=== PATIENT | female | born 1995 | race Hispanic/Latino ===

== ENCOUNTER 2019-05-18 17:52 | Emergency (ER) | payer OTHER ==
[2019-05-18 18:33] LABS: APPEARANCE,URINE Clear (CLEAR); BILIRUBIN,URINE Negative (NEGATIVE); COLOR,URINE Yellow (YELLOW); GLUCOSE, URINE (UA) Negative (NEGATIVE); KETONES,URINE Negative (NEGATIVE); LEUKOCYTE ESTERASE ,URINE Negative (NEGATIVE); NITRATE,URINE Negative (NEGATIVE); OCCULT BLOOD,URINE Negative (NEGATIVE); PH,URINE 5.5 (5.0-8.0); PROTEIN,URINE Negative (NEGATIVE); UROBILINOGEN,URINE 0.2 mg/dL (0.2-1.0)
== END 2019-05-18 19:50 | disposition home or self-care (01) ==
LOC: EDH 17:52
DX: O20.0 Threatened abortion (principal); Z3A.18 18 weeks gestation of pregnancy
CPT/HCPCS: 36415; 76805; 81003; 86900; 86901

== ENCOUNTER 2019-10-07 | Inpatient (IN) | payer OTHER | END 2019-10-10 14:15 | disposition home or self-care (01) | DRG 807 | PROVIDERS: ADMIT Obstetrics & Gynecology | PROC: 3E033VJ Introduction of Other Hormone into Peripheral Vein, Percutaneous Approach (ICD-10-PCS; 2019-10-08) | PROC: 10D07Z6 Extraction of Products of Conception, Vacuum, Via Natural or Artificial Opening (ICD-10-PCS; principal; 2019-10-09) | PROC: 3E0P7VZ Introduction of Hormone into Female Reproductive, Via Natural or Artificial Opening (ICD-10-PCS; 2019-10-09) | PROC: 0W8NXZZ Division of Female Perineum, External Approach (ICD-10-PCS; 2019-10-09) | PROC: 00HU33Z Insertion of Infusion Device into Spinal Canal, Percutaneous Approach (ICD-10-PCS; 2019-10-09) | PROC: 3E0R3BZ Introduction of Anesthetic Agent into Spinal Canal, Percutaneous Approach (ICD-10-PCS; 2019-10-09) | PROC: 3E0234Z Introduction of Serum, Toxoid and Vaccine into Muscle, Percutaneous Approach (ICD-10-PCS; 2019-10-09) ==

== ENCOUNTER 2019-10-13 20:51 | Emergency (ER) | payer OTHER ==
[~2019-10-13 20:51] MED LIST: PREN-154 PO
[2019-10-13 21:40] LABS: APPEARANCE,URINE Clear (CLEAR); BILIRUBIN,URINE Negative (NEGATIVE); COLOR,URINE Yellow (YELLOW); GLUCOSE, URINE (UA) Negative (NEGATIVE); KETONES,URINE Negative (NEGATIVE); LEUKOCYTE ESTERASE ,URINE Large (NEGATIVE); NITRATE,URINE Negative (NEGATIVE); OCCULT BLOOD,URINE Large (NEGATIVE); PROTEIN,URINE Negative (NEGATIVE); UROBILINOGEN,URINE 0.2 mg/dL (0.2-1.0)
[2019-10-13 21:49] LABS: BACTERIA,URINE Few /HPF (None Seen); SQUAMOUS EPITHELIAL CELL,UR Few /HPF (0-2)
[2019-10-13] MEDS ORDERED: SODIUM CHLORIDE 0.9% 1000ML 1,000 ML IV ONE (22:21)
[2019-10-13 22:43] LABS: BASOPHILS % (AUTO) 0.2 % (0.0-5.0); EOSINOPHILS % (AUTO) 2.9 % (0.0-8.0); HEMATOCRIT 33.8 % (36-48); MEAN CORPUSCULAR HEMOGLOBIN 28.1 pg (27.0-33.0); MEAN CORPUSCULAR HGB CONC 32.5 g/dL (32.0-36.0); MEAN CORPUSCULAR VOLUME 86.2 fL (79-99); MONOCYTES % (AUTO) 7.7 % (3.0-13.0); NEUTROPHILS % (AUTO) 73.5 % (40.0-77.0); PLATELET COUNT (AUTO) 341 K/uL (130-400); RED BLOOD CELL COUNT(AUTO) 3.92 MIL/uL (4.00-5.50); RED CELL DISTRIBUTION WIDTH 13.7 % (11.0-15.5); WHITE BLOOD COUNT (AUTO) 12.3 K/uL (4.8-10.8)
[2019-10-13 22:50] LABS: CREATININE 0.7 mg/dL (0.5-1.5); POTASSIUM 4.5 mmol/L (3.5-5.1)
[2019-10-13 22:54] LABS: ALBUMIN 2.7 g/dL (3.5-5.0); BILIRUBIN,TOTAL 0.2 mg/dL (0.2-1.0); TOTAL PROTEIN, SERUM 7.2 g/dL (6.0-8.3)
[2019-10-13] MEDS ORDERED: CEPHALEXIN 500 MG CAPSULE ONE (23:22)
[2019-10-13] MEDS ORDERED: ACETAMINOPHEN EXTRA STRENGTH 500 MG TABLET ONE (23:22)
== END 2019-10-13 23:29 | disposition home or self-care (01) ==
LOC: EDH 20:51
DX: O86.20 Urinary tract infection following delivery, unspecified (principal); O90.89 Other complications of the puerperium, not elsewhere classified; R42 Dizziness and giddiness; Z79.899 Other long term (current) drug therapy
CPT/HCPCS: 36415; 80053; 81001; 85025; 87088; 96360; 99283; J7030

== ENCOUNTER 2019-11-01 19:38 | Emergency (ER) | payer OTHER ==
[2019-11-01 20:11] LABS: BASOPHILS % (AUTO) 0.4 % (0.0-5.0); EOSINOPHILS % (AUTO) 4.1 % (0.0-8.0); LYMPHOCYTES % (AUTO) 33.3 % (21.0-51.0); MEAN CORPUSCULAR HEMOGLOBIN 27.2 pg (27.0-33.0); MEAN CORPUSCULAR HGB CONC 32.4 g/dL (32.0-36.0); MEAN CORPUSCULAR VOLUME 83.9 fL (79-99); NEUTROPHILS % (AUTO) 53.1 % (40.0-77.0); PLATELET COUNT (AUTO) 395 K/uL (130-400); RED BLOOD CELL COUNT(AUTO) 4.53 MIL/uL (4.00-5.50); RED CELL DISTRIBUTION WIDTH 13.2 % (11.0-15.5); WHITE BLOOD COUNT (AUTO) 7.6 K/uL (4.8-10.8)
[2019-11-01 20:20] LABS: CREATININE 0.7 mg/dL (0.5-1.5); POTASSIUM 4.4 mmol/L (3.5-5.1)
[2019-11-01 20:22] LABS: INR 0.98 (0.85-1.15); PROTHROMBIN TIME 10.6 SEC (9.6-11.6)
[2019-11-01] MEDS ORDERED: CYCLOBENZAPRINE HCL 10 MG TABLET ONE (21:06)
== END 2019-11-01 21:09 | disposition home or self-care (01) ==
LOC: EDH 19:38
DX: N93.9 Abnormal uterine and vaginal bleeding, unspecified (principal)
CPT/HCPCS: 36415; 80048; 85025; 85610; 85730

== ENCOUNTER 2020-08-11 02:23 | Inpatient (IN) | payer OTHER ==
[~2020-08-11] VITALS: Ht 162.6 cm; Wt 93.4 kg
[2020-08-11 02:57] LABS: APPEARANCE,URINE Cloudy (CLEAR); BILIRUBIN,URINE Negative (NEGATIVE); COLOR,URINE Yellow (YELLOW); GLUCOSE, URINE (UA) Negative (NEGATIVE); KETONES,URINE Negative (NEGATIVE); LEUKOCYTE ESTERASE ,URINE Moderate (NEGATIVE); NITRATE,URINE Negative (NEGATIVE); OCCULT BLOOD,URINE Negative (NEGATIVE); PH,URINE 6.5 (5.0-8.0); PROTEIN,URINE Negative (NEGATIVE)
[2020-08-11 03:04] LABS: AMPHET/METH SCREEN,URINE NEGATIVE (NEGATIVE); BARBITURATE SCREEN, URINE NEGATIVE (NEGATIVE); BENZODIAZEPINES SCREEN,URINE NEGATIVE (NEGATIVE); CANNABINOID SCREEN,URINE NEGATIVE (NEGATIVE); COCAINE SCREEN,URINE NEGATIVE (NEGATIVE); OPIATE SCREEN,URINE NEGATIVE (NEGATIVE); PHENCYCLIDINE SCREEN,URINE NEGATIVE (NEGATIVE)
[2020-08-11] MEDS ORDERED: LACTATED RINGERS 1000ML 1,000 ML IV ONE ×2 (03:09→20:42)
[2020-08-11 03:20] LABS: BACTERIA,URINE Moderate /HPF (None Seen); MUCUS,URINE Moderate LPF (None Seen); RBC,URINE None Seen /HPF (0-1); SQUAMOUS EPITHELIAL CELL,UR Moderate /HPF (0-2)
[2020-08-11] MEDS ORDERED: AMPICILLIN 2GM+NS 100ML 100 ML IV ONE (04:03)
[2020-08-11] MEDS: CEFTRIAXONE 1G VIAL IVP SCH (05:16)
[2020-08-11] MEDS: PROMETHAZINE HCL 25 MG/ML 1ML AMPULE IM PRN ×2 (05:31→19:40)
[2020-08-11] MEDS: MEPERIDINE-PF 50 MG/ML SYG IVP PRN ×3 (05:32→08:33)
[2020-08-11 08:21] LABS: BASOPHILS % (AUTO) 0.2 % (0.0-5.0); EOSINOPHILS % (AUTO) 0.8 % (0.0-8.0); HEMATOCRIT 32.4 % (36-48); LYMPHOCYTES % (AUTO) 13.7 % (21.0-51.0); MEAN CORPUSCULAR HEMOGLOBIN 24.1 pg (27.0-33.0); MEAN CORPUSCULAR HGB CONC 29.6 g/dL (32.0-36.0); MEAN CORPUSCULAR VOLUME 81.2 fL (79-99); MONOCYTES % (AUTO) 10.4 % (3.0-13.0); NEUTROPHILS % (AUTO) 73.2 % (40.0-77.0); PLATELET COUNT (AUTO) 341 K/uL (130-400); RED BLOOD CELL COUNT(AUTO) 3.99 MIL/uL (4.00-5.50); RED CELL DISTRIBUTION WIDTH 14.3 % (11.0-15.5); WHITE BLOOD COUNT (AUTO) 13.7 K/uL (4.8-10.8)
[2020-08-11] MEDS: AMPICILLIN 2GM+NS 100ML 100 ML IV SCH ×4 (09:00→21:48)
[2020-08-11 09:42] LABS: AMYLASE 67 U/L (25-115); LIPASE 74 U/L (114-286)
[2020-08-11] MEDS: MEPERIDINE-PF 75 MG/ML SYG IVP PRN ×3 (10:48→19:42)
[2020-08-11] MEDS ORDERED: ACETAMINOPHEN 325 MG TAB PO PRN (15:45)
[2020-08-11] MEDS ORDERED: ACETAMINOPHEN 325 MG TAB ONE (15:51)
[2020-08-11] MEDS ORDERED: ACETAMINOPHEN 500 MG TABLET ONE (19:28)
[2020-08-11] MEDS ORDERED: GENTAMICIN 80 MG/NS 100 ML PB 100 ML IV ONE (19:58)
[2020-08-11] MEDS: LACTATED RINGERS 1000ML 1,000 ML IV SCH (21:24)
[2020-08-12] MEDS: PROMETHAZINE HCL 25 MG/ML 1ML AMPULE IM PRN ×5 (00:07→22:10)
[2020-08-12] MEDS: MEPERIDINE-PF 75 MG/ML SYG IVP PRN ×3 (00:08→13:41)
[2020-08-12] MEDS: ACETAMINOPHEN 500 MG TABLET PO SCH ×3 (01:38→19:59)
[2020-08-12] MEDS: AMPICILLIN 2GM+NS 100ML 100 ML IV SCH (03:12)
[2020-08-12] MEDS: GENTAMICIN 80 MG/NS 100 ML PB 100 ML IV SCH ×4 (04:14→20:00)
[2020-08-12] MEDS: LACTATED RINGERS 1000ML 1,000 ML IV SCH ×4 (05:33→19:45)
[2020-08-12 06:22] LABS: BASOPHILS % (AUTO) 0.3 % (0.0-5.0); HEMATOCRIT 26.9 % (36-48); LYMPHOCYTES % (AUTO) 2.3 % (21.0-51.0); MEAN CORPUSCULAR HEMOGLOBIN 24.9 pg (27.0-33.0); MEAN CORPUSCULAR HGB CONC 30.9 g/dL (32.0-36.0); MEAN CORPUSCULAR VOLUME 80.5 fL (79-99); MONOCYTES % (AUTO) 4.4 % (3.0-13.0); NEUTROPHILS % (AUTO) 89.4 % (40.0-77.0); NUCLEATED RED BLOOD CELLS 0.1 % (0.0-0.19); PLATELET COUNT (AUTO) 294 K/uL (130-400); RED BLOOD CELL COUNT(AUTO) 3.34 MIL/uL (4.00-5.50); RED CELL DISTRIBUTION WIDTH 14.9 % (11.0-15.5); WHITE BLOOD COUNT (AUTO) 25.5 K/uL (4.8-10.8)
[2020-08-12] MEDS: MEPERIDINE-PF 50 MG/ML SYG IVP PRN ×2 (09:37→22:11)
[2020-08-12] MEDS ORDERED: GLYCERIN ADULT SUPP.RECT RC SCH (10:15)
[2020-08-12] MEDS: ZOSYN 3.375GM+NS 50ML 50 ML IV SCH ×2 (13:42→22:10)
[2020-08-12 14:12] LABS: HEPATITIS Bs ANTIGEN SCREEN P Negative (Negative)
[2020-08-13] MEDS: LACTATED RINGERS 1000ML 1,000 ML IV SCH ×2 (01:31→12:45)
[2020-08-13] MEDS: CEFTRIAXONE 1G VIAL IVP SCH (04:00)
[2020-08-13] MEDS: GENTAMICIN 80 MG/NS 100 ML PB 100 ML IV SCH ×3 (04:09→20:26)
[2020-08-13] MEDS: ACETAMINOPHEN 500 MG TABLET PO SCH (04:36)
[2020-08-13 06:04] LABS: HEMATOCRIT 27.6 % (36-48); MEAN CORPUSCULAR HEMOGLOBIN 24.3 pg (27.0-33.0); MEAN CORPUSCULAR HGB CONC 30.4 g/dL (32.0-36.0); MEAN CORPUSCULAR VOLUME 79.8 fL (79-99); RED BLOOD CELL COUNT(AUTO) 3.46 MIL/uL (4.00-5.50); RED CELL DISTRIBUTION WIDTH 15.2 % (11.0-15.5); WHITE BLOOD COUNT (AUTO) 22.1 K/uL (4.8-10.8)
[2020-08-13] MEDS: ZOSYN 3.375GM+NS 50ML 50 ML IV SCH ×2 (06:13→15:00)
[2020-08-13] MEDS ORDERED: ALBUTEROL INHALER 90MCG/INH IH PRN ×2 (09:00→18:45)
[2020-08-13] MEDS ORDERED: MEPERIDINE-PF 50 MG/ML SYG IVP PRN (09:45)
[2020-08-13] MEDS ORDERED: PROMETHAZINE HCL 25 MG/ML 1ML AMPULE IM PRN (09:45)
[2020-08-13] MEDS: HYDROXYZINE 100MG/2ML VIAL IM SCH (10:44)
[2020-08-13] MEDS ORDERED: MAGNESIUM 4GM PREMIX 100ML 100 ML IV SCH (11:45)
[2020-08-13] MEDS ORDERED: CELESTONE SOLUSPAN 6 MG/ML 5ML VIAL ONE (11:45)
[2020-08-13] MEDS ORDERED: CALCIUM GLUC 1GM VIAL IV PRN (11:45)
[2020-08-13] MEDS ORDERED: MAGNESIUM SULFATE 40GM/1000ML 1,000 ML IV PRN (11:45)
[2020-08-13] MEDS ORDERED: MAGNESIUM 4GM PREMIX 100ML 100 ML IV ONE (11:45)
[2020-08-13] MEDS ORDERED: MAGNESIUM SULFATE 40GM/1000ML 1,000 ML IV ONE (11:46)
[2020-08-13] MEDS: CELESTONE SOLUSPAN 6 MG/ML 5ML VIAL IM SCH (11:50)
[2020-08-13] MEDS ORDERED: PORACTANT ALFA 240 MG/3 ML VIAL IH ONE (13:51)
[2020-08-13] MEDS ORDERED: OXYTOCIN-LR 20 UNITS/1000 ML 1,000 ML IV ONE ×2 (13:52→15:08)
[2020-08-13] MEDS ORDERED: METHYLERGONOVINE MALEATE 0.2 MG/1 ML ML ONE (14:17)
[2020-08-13] MEDS ORDERED: MISOPROSTOL 200 MCG TABLET ONE (14:18)
[2020-08-13] MEDS ORDERED: MISOPROSTOL 100 MCG TABLET ONE (14:19)
[2020-08-13] MEDS ORDERED: DIPH,PERTUSS(ACELL),TET VAC/PF 0.5 ML VIAL IM PRN (14:45)
[2020-08-13] MEDS ORDERED: OXYTOCIN-LR 20 UNITS/1000 ML 1,000 ML IV SCH (14:45)
[2020-08-13] MEDS ORDERED: BENZOCAINE/LANOLIN/ALOE VERA 60 ML AEROSOL TP PRN (14:45)
[2020-08-13] MEDS ORDERED: LANOLIN 30GM OINTMENT TP PRN (14:45)
[2020-08-13] MEDS ORDERED: MEASLES/MUMPS/RUBELLA VACCINE, LIVE 0.5 ML/VIAL SQ PRN (14:45)
[2020-08-13] MEDS ORDERED: ACETAMINOPHEN 325 MG TAB PO PRN (14:45)
[2020-08-13] MEDS ORDERED: IBUPROFEN 600 MG TABLET PO PRN (14:45)
[2020-08-13] MEDS ORDERED: ACETAMINOPHEN WITH CODEINE 1 TAB TAB PO PRN (14:45)
[2020-08-13] MEDS ORDERED: WITCH HAZEL 1 PAD TP PRN (14:45)
[2020-08-13] MEDS ORDERED: IBUPROFEN 600 MG TABLET ONE (15:17)
[2020-08-13 15:54] LABS: HEMATOCRIT 29.8 % (36-48)
[2020-08-13] MEDS ORDERED: ALBUTEROL 0.083% 2.5 MG/3 ML INH IH PRN (17:30)
[2020-08-13 17:35] VITALS: BP 136/71
[2020-08-13 18:58] VITALS: BP 145/93
[2020-08-13 20:00] VITALS: BP 126/5
[2020-08-13 22:50] VITALS: BP 134/72
[2020-08-14] MEDS: ACETAMINOPHEN 500 MG TABLET PO SCH ×3 (01:14→19:07)
[2020-08-14] MEDS: ZOSYN 3.375GM+NS 50ML 50 ML IV SCH ×4 (01:16→23:36)
[2020-08-14] MEDS: GENTAMICIN 80 MG/NS 100 ML PB 100 ML IV SCH ×3 (03:27→21:59)
[2020-08-14 03:35] VITALS: BP 135/78
[2020-08-14] MEDS: CEFTRIAXONE 1G VIAL IVP SCH ×2 (04:00→04:30)
[2020-08-14] MEDS ORDERED: 0.9%NACL 10ML VIAL ONE (04:20)
[2020-08-14 07:12] LABS: HEMATOCRIT 27.1 % (36-48); MEAN CORPUSCULAR HEMOGLOBIN 23.7 pg (27.0-33.0); MEAN CORPUSCULAR HGB CONC 30.3 g/dL (32.0-36.0); MEAN CORPUSCULAR VOLUME 78.3 fL (79-99); RED BLOOD CELL COUNT(AUTO) 3.46 MIL/uL (4.00-5.50); RED CELL DISTRIBUTION WIDTH 14.7 % (11.0-15.5)
[2020-08-14 08:00] VITALS: BP 134/81
[2020-08-14] MEDS: DOCUSATE SODIUM 100 MG CAP PO SCH ×2 (08:54→20:38)
[2020-08-14] MEDS: CELESTONE SOLUSPAN 6 MG/ML 5ML VIAL IM SCH ×2 (11:45→19:55)
[2020-08-14 12:00] VITALS: BP 136/77
[2020-08-14 16:00] VITALS: BP 115/56
[2020-08-14] MEDS: HYDROXYZINE 100MG/2ML VIAL IM SCH ×2 (17:00→23:47)
[2020-08-14 19:46] VITALS: BP 120/70
[2020-08-14] MEDS: LACTATED RINGERS 1000ML 1,000 ML IV SCH (22:05)
[2020-08-14 23:31] VITALS: BP 126/83
[2020-08-15] MEDS: ACETAMINOPHEN 500 MG TABLET PO SCH ×3 (00:38→12:00)
[2020-08-15 03:04] VITALS: BP 126/89
[2020-08-15] MEDS: CEFTRIAXONE 1G VIAL IVP SCH (04:01)
[2020-08-15] MEDS: LACTATED RINGERS 1000ML 1,000 ML IV SCH (04:06)
[2020-08-15] MEDS: GENTAMICIN 80 MG/NS 100 ML PB 100 ML IV SCH ×2 (06:20→13:41)
[2020-08-15 07:02] LABS: HEMATOCRIT 25.4 % (36-48); MEAN CORPUSCULAR HEMOGLOBIN 24.6 pg (27.0-33.0); MEAN CORPUSCULAR HGB CONC 30.7 g/dL (32.0-36.0); MEAN CORPUSCULAR VOLUME 80.1 fL (79-99); NUCLEATED RED BLOOD CELLS 0.2 % (0.0-0.19); RED BLOOD CELL COUNT(AUTO) 3.17 MIL/uL (4.00-5.50); RED CELL DISTRIBUTION WIDTH 14.8 % (11.0-15.5); WHITE BLOOD COUNT (AUTO) 12.4 K/uL (4.8-10.8)
[2020-08-15] MEDS: ZOSYN 3.375GM+NS 50ML 50 ML IV SCH (07:04)
[2020-08-15 07:12] VITALS: BP 133/72
[2020-08-15] MEDS: DOCUSATE SODIUM 100 MG CAP PO SCH (08:21)
[2020-08-15] MEDS: HYDROXYZINE 100MG/2ML VIAL IM SCH (08:49)
[2020-08-15 11:06] VITALS: BP 146/78
[2020-08-15 16:16] VITALS: BP 138/61
== END 2020-08-15 19:00 | disposition home or self-care (01) | DRG 805 ==
LOC: EDH 02:23 → LDH 02:24 → OBSVTOIN 02:24 → WSH 08-13 16:42
PROVIDERS: ADMIT Obstetrics & Gynecology; ATTEND Obstetrics & Gynecology
PROC: 10E0XZZ Delivery of Products of Conception, External Approach (ICD-10-PCS; principal; 2020-08-13)
PROC: 3E0134Z Introduction of Serum, Toxoid and Vaccine into Subcutaneous Tissue, Percutaneous Approach (ICD-10-PCS; 2020-08-13)
PROC: 3E0234Z Introduction of Serum, Toxoid and Vaccine into Muscle, Percutaneous Approach (ICD-10-PCS; 2020-08-13)
DX: O23.03 Infections of kidney in pregnancy, third trimester (principal); O60.14X0 Preterm labor third trimester with preterm delivery third trimester, not applicable or unspecified; Z37.0 Single live birth; O26.833 Pregnancy related renal disease, third trimester; Z3A.33 33 weeks gestation of pregnancy; Z87.442 Personal history of urinary calculi; Z23 Encounter for immunization; Z20.822 Contact with and (suspected) exposure to COVID-19
CPT/HCPCS: 36415; 71045; 76770; 76805; 80170; 80305; 81001; 82150; 83690; 83735; 85014; 85018; 85025; 85027; 86592; 86850; 86900; 86901; 87040; 87070; 87088; 87340; 87426; 87804; 87880; 88307; 88312; 88341; 88342; 96360; 96361; A4314; G0378; J0290; J0696; J0702; J1580; J2175; J2210; J2543; J2550; J2590; J3410; J3475; J7120

== ENCOUNTER 2022-06-24 22:12 | Emergency (ER) | payer OTHER ==
[~2022-06-24] VITALS: Ht 162.6 cm; Wt 83.0 kg
[2022-06-24] MEDS ORDERED: 0.9%NACL 1000ML 1,000 ML IV ONE (22:30)
[2022-06-24 22:42] LABS: BASOPHILS % (AUTO) 0.4 % (0.0-5.0); LYMPHOCYTES % (AUTO) 21.4 % (21.0-51.0); MEAN CORPUSCULAR HEMOGLOBIN 27.7 pg (27.0-33.0); MEAN CORPUSCULAR HGB CONC 32.1 g/dL (32.0-36.0); MEAN CORPUSCULAR VOLUME 86.5 fL (79-99); MONOCYTES % (AUTO) 11.5 % (3.0-13.0); NEUTROPHILS % (AUTO) 65.3 % (40.0-77.0); PLATELET COUNT (AUTO) 323 K/uL (130-400); RED BLOOD CELL COUNT(AUTO) 4.51 MIL/uL (4.00-5.50); RED CELL DISTRIBUTION WIDTH 13.1 % (11.0-15.5); WHITE BLOOD COUNT (AUTO) 7.9 K/uL (4.8-10.8)
[2022-06-24 22:48] LABS: APPEARANCE,URINE CLEAR (CLEAR); BILIRUBIN,URINE NEGATIVE (NEGATIVE); COLOR,URINE LIGHT-YELLOW (YELLOW); GLUCOSE, URINE (UA) NEGATIVE (NEGATIVE); KETONES,URINE NEGATIVE (NEGATIVE); LEUKOCYTE ESTERASE ,URINE NEGATIVE Leu/uL (NEGATIVE); NITRATE,URINE NEGATIVE (NEGATIVE); OCCULT BLOOD,URINE LARGE (NEGATIVE); PH,URINE 5.5 (5.0-8.0); PROTEIN,URINE NEGATIVE (NEGATIVE); UROBILINOGEN,URINE 0.2 mg/dL (0.2-1.0)
[2022-06-24 22:50] LABS: HCG,QUALITATIVE URINE POSITIVE (NEGATIVE)
[2022-06-24 22:51] LABS: MUCUS,URINE RARE LPF (None Seen); RBC,URINE 51-100 /HPF (0-1); SQUAMOUS EPITHELIAL CELL,UR RARE /HPF (0-2)
[2022-06-24 23:00] LABS: CREATININE 0.8 mg/dL (0.5-1.5); POTASSIUM 3.8 mmol/L (3.5-5.1)
[2022-06-24 23:27] LABS: ALBUMIN 3.9 g/dL (3.5-5.0); TOTAL PROTEIN, SERUM 7.5 g/dL (6.0-8.3)
[2022-06-25 00:39] VITALS: BP 136/78
== END 2022-06-25 01:08 | disposition home or self-care (01) ==
LOC: EDH 22:12
DX: O20.0 Threatened abortion (principal); Z3A.01 Less than 8 weeks gestation of pregnancy
CPT/HCPCS: 36415; 76801; 80053; 81001; 81025; 84702; 85025